=== PATIENT | male | born 1995 | race Caucasian/White ===

== ENCOUNTER 2017-07-27 06:05 | Day surgery (SDC) | payer OTHER ==
[~2017-07-27] VITALS: Ht 180.3 cm; Wt 86.2 kg
[2017-07-27] MEDS ORDERED: ONDANSETRON 4 MG/2 ML VIAL ONE (07:45)
[2017-07-27] MEDS ORDERED: DEXAMETHASONE 10 MG/ML VIAL ONE (07:45)
[2017-07-27] MEDS ORDERED: SUCCINYLCHOLINE CHLORIDE 200 MG/10 ML VIAL IVP ONE (07:45)
[2017-07-27] MEDS ORDERED: NEOSTIGMINE 1:1000 10 MG/10 ML VIAL ONE (07:45)
[2017-07-27] MEDS ORDERED: ceFAZolin 1,000 MG VIAL ONE ×2 (07:45→08:12)
[2017-07-27] MEDS ORDERED: PROPOFOL 200 MG/20 ML VIAL IV ONE (07:45)
[2017-07-27] MEDS ORDERED: GLYCOPYRROLATE 0.2 MG/ML VIAL ONE (07:45)
[2017-07-27] MEDS ORDERED: DESFLURANE 240 ML BTL INH ONE (07:45)
[2017-07-27] MEDS ORDERED: NEOMYCIN/POLYMYXIN/BACITRACIN OIN 15 GM TUBE TP ONE (07:49)
[2017-07-27] MEDS ORDERED: LIDOCAINE/EPI MPF 1%1:200000 30 ML VIAL INJ ONE (07:50)
[2017-07-27] MEDS ORDERED: PHENYLEPHRINE 1% 15 ML BTL NS ONE (07:50)
[2017-07-27] MEDS ORDERED: MIDAZOLAM 2 MG/2 ML VIAL ONE (08:17)
[2017-07-27] MEDS ORDERED: fentaNYL 0.05 MG/ML VIAL ONE (08:17)
[2017-07-27] MEDS ORDERED: MORPHINE SULFATE 4 MG/ML SYR ONE ×2 (08:17→09:52)
[2017-07-27] MEDS ORDERED: MORPHINE SULFATE 2 MG/ML SYR IVP PRN (08:45)
[2017-07-27] MEDS ORDERED: METOCLOPRAMIDE 10 MG/2 ML INJ VIAL IVP PRN (08:45)
[2017-07-27] MEDS ORDERED: MORPHINE SULFATE 4 MG/ML SYR IVP PRN ×2 (08:45)
[2017-07-27] MEDS ORDERED: MIDAZOLAM 2 MG/2 ML VIAL IV ONE (08:45)
[2017-07-27] MEDS ORDERED: PROMETHAZINE 25 MG/ML VIAL IVP PRN (09:20)
[2017-07-27] MEDS ORDERED: guaiFENesin DM 200/20 MG-10 ML 10 ML UDC PO PRN (09:20)
[2017-07-27] MEDS ORDERED: ACETAMIN/CODEINE 120/12MG-5ML 5 ML UDC PO PRN (09:20)
[2017-07-27] MEDS ORDERED: MEPERIDINE 50 MG/ML SYR IVP PRN (09:20)
== END 2017-07-27 11:05 | disposition home or self-care (01) ==
LOC: MDS 06:05 → MMU 06:08 → MDS 11:05
PROVIDERS: ATTEND Otolaryngology
DX: J34.2 Deviated nasal septum (principal); J34.3 Hypertrophy of nasal turbinates; Z90.49 Acquired absence of other specified parts of digestive tract
CPT/HCPCS: 30140; 30520; 30999; 93005; J0330; J0690; J1100; J2001; J2250; J2270; J2405; J2704; J2710; J3010; J3490; J7120